=== PATIENT | female | born 1955 | race Caucasian/White ===

== ENCOUNTER 2022-09-29 18:31 | Emergency (ER) | payer MEDICARE ==
[~2022-09-29] VITALS: Ht 170.2 cm; Wt 181.4 kg
[2022-09-29 19:00] VITALS: BP_SYST 135
--- NOTE | 2022-09-29 19:15 | NUR ---
ER examining patient in the [facility].
[2022-09-29] MEDS ORDERED: KETOROLAC TROMETHAMINE 30 MG VIAL IVP ONE (19:45)
[2022-09-29] MEDS ORDERED: MORPHINE 4 MG INJ. 4 MG/ML VIAL IVP ONE (19:45)
--- NOTE | 2022-09-29 20:25 | NUR ---
Patient to ER bed 6 to gown for evaluation. Side rails up. Report given to Jethro IBANEZ(reg).
--- NOTE | 2022-09-29 20:30 | NUR ---
Patient arrived to ED for c/o right side leg pain. Patient has chronic leg pain that lasted about a year. Patient has unbearable leg pain. Patient denies falling or any injuries. Patient has many co-morbities that are listed. Patient has diabetes, HTN, CHF, kidney disease and takes insulin. Patient has regular BM and urination practices. Patient eats and drinks okay.
[2022-09-29 22:40] LABS: HEMATOCRIT 41.2 % (36-48); HEMOGLOBIN 13.3 g/dL (12.0-16.0); MEAN CORPUSCULAR HEMOGLOBIN 34 pg (27-31); MEAN CORPUSCULAR HGB CONC 32 % (32-36); MEAN CORPUSCULAR VOLUME 105 fL (79.0-98.0); PLATELET COUNT (AUTO) 175 K/uL (130-430); RED BLOOD CELL COUNT(AUTO) 3.92 MIL/uL (4.2-6.2); RED CELL DISTRIBUTION WIDTH 15.3 % (9.0-15.0); WHITE BLOOD COUNT (AUTO) 8.6 K/uL (4.8-10.8)
[2022-09-29 22:53] LABS: ANION GAP 6 (5-15); CALCIUM 9.2 mg/dL (8.4-11.0); CHLORIDE 115 mmol/L (98-107); CREATININE 1.72 mg/dL (0.55-1.30); GLUCOSE 168 mg/dL (70-99); UREA NITROGEN, BLOOD 50 mg/dL (8-21)
[2022-09-29 22:58] LABS: ALANINE AMINOTRANSFERASE 17 U/L (12-78); ALBUMIN 3.1 g/dL (3.4-4.8); ASPARTATE AMINOTRANSFERASE 21 U/L (10-37); TOTAL BILIRUBIN 0.3 mg/dL (0.0-1.0)
[2022-09-29 23:02] LABS: GFR AFRICAN AMERICAN 38 mL/min (>90)
[2022-09-29 23:55] LABS: ERYTHROCYTE SEDIMENTATION RATE 34 MM/HR (0-20)
--- NOTE | 2022-09-29 23:59 | NUR ---
straight in and out cath collected with SHAMAR Del Cid. Patient ok with urine collection.
[2022-09-30 00:13] LABS: BILIRUBIN,URINE NEGATIVE (NEGATIVE); BLOOD, URINE NEGATIVE (NEGATIVE); CLARITY/URINE CLEAR (CLEAR); COLOR,URINE YELLOW (YELLOW); GLUCOSE,URINE NEGATIVE (NEGATIVE); KETONES,URINE NEGATIVE (NEGATIVE); LEUKOCYTE ESTERASE ,URINE NEGATIVE (NEGATIVE); NITRITE, URINE NEGATIVE (NEGATIVE); PH,URINE 5.5 (5.0-8.0); PROTEIN URINE 2+ (NEGATIVE); UROBILINOGEN,URINE 0.2 (0.2-1.0)
[2022-09-30 00:24] LABS: RBC,URINE NONE SEEN /HPF (0-3); WBC,URINE NONE SEEN /HPF (0-3)
[2022-09-30 00:25] LABS: BACTERIA,URINE None Seen /HPF (None Seen)
[2022-09-30 00:26] LABS: URINE SULFO SALICYLIC ACID NEGATIVE (NEGATIVE)
[2022-09-30 00:27] LABS: URIC ACID CRYSTALS,URINE 0-10 /HPF (None Seen)
--- NOTE | 2022-09-30 02:20 | NUR ---
patient resting at the moment. vital signs stable.
--- NOTE | 2022-09-30 02:21 | NUR ---
Patient has been accepted to [facility].
[2022-09-30] MEDS ORDERED: MORPHINE 4 MG INJ. 4 MG/ML VIAL IVP ONE (02:30)
[2022-09-30] MEDS ORDERED: ONDANSETRON HCL 4 MG/2 ML VIAL IVP ONE (02:30)
--- NOTE | 2022-09-30 03:24 | NUR ---
Endorsed to [facility] for continuity of care. Patient in stable condition. No distress noted. Awaiting [place] placement at 4 AM.
--- NOTE | 2022-09-30 04:18 | NUR ---
Patient to be transferred to [facility] Is being transferred due to higher level of care. Receiving facility has accepting physician and available space. ER physician has signed transfer form. Patient or responsible republican has agreed to transfer and signed form. Patient belongings inventoried and will be sent with patient. Copy of nursing notes, lab reports, EKG, Physicians Orders and X-rays to be sent with patient. Report called to Aura IBANEZ by Nurse Morelos at receiving facility. Receiving physician is Erika. [facility] ambulance service has been called for transfer.
[2022-09-30 04:20] VITALS: BP_SYST 134
== END 2022-09-30 04:18 | disposition short-term general hospital (02) ==
LOC: SED 18:31
DX: M54.50 Low back pain, unspecified (principal); R20.2 Paresthesia of skin; J44.9 Chronic obstructive pulmonary disease, unspecified; I11.0 Hypertensive heart disease with heart failure; I50.9 Heart failure, unspecified; Z79.899 Other long term (current) drug therapy; Z20.822 Contact with and (suspected) exposure to COVID-19
CPT/HCPCS: 99284; 96374; 72131; 96375 ×2; 87426; 80053; 81000; 85025; 85651; 84484; 36415; 76376; 96376; J1885; J2270 ×2; J2405

== ENCOUNTER 2024-05-03 14:08 | Inpatient (IN) | payer MEDICARE ==
[~2024-05-03] VITALS: Ht 167.6 cm; Wt 176.4 kg
[2024-05-03 14:17] VITALS: BP_SYST 102; PULSE 75; RESP 20; TEMP 97.1; O2SAT 93
[2024-05-03] MEDS ORDERED: AMIODARONE HCL 150 MG in D5W 97 ML IV ONE (14:30)
[2024-05-03 15:25] LABS: BASOPHILS # (AUTO) 0.1 K/uL (0.0-0.2); EOSINOPHILS # (AUTO) 0.2 K/uL (0.0-0.4); EOSINOPHILS % (AUTO) 1.7 % (0.0-4.0); LYMPHOCYTES # (AUTO) 0.9 K/uL (1.0-5.5); LYMPHOCYTES % (AUTO) 8.4 % (20.5-51.5); MEAN CORPUSCULAR HEMOGLOBIN 33 pg (27-31); MEAN CORPUSCULAR HGB CONC 31 % (32-36); MEAN CORPUSCULAR VOLUME 107 fL (79.0-98.0); MONOCYTES # (AUTO) 0.8 K/uL (0.0-1.0); MONOCYTES % (AUTO) 7.2 % (1.7-9.3); NEUTROPHILS # (AUTO) 8.6 K/uL (1.8-7.7); NEUTROPHILS % (AUTO) 81.7 % (40.0-70.0); PLATELET COUNT (AUTO) 140 K/uL (130-430); RED BLOOD CELL COUNT(AUTO) 5.21 MIL/uL (4.2-6.2); RED CELL DISTRIBUTION WIDTH 18.8 % (9.0-15.0); WHITE BLOOD COUNT (AUTO) 10.6 K/uL (4.8-10.8)
[2024-05-03 15:43] LABS: ALANINE AMINOTRANSFERASE 16 U/L (12-78); ANION GAP 2 (5-15); ASPARTATE AMINOTRANSFERASE 24 U/L (10-37); CALCIUM 9.4 mg/dL (8.4-11.0); CARBON DIOXIDE 33 mmol/L (23-29); CHLORIDE 111 mmol/L (98-107); CREATININE 2.56 mg/dL (0.55-1.30); GFR AFRICAN AMERICAN 24 mL/min (>90); GFR NON AFRICAN-AMERICAN 20 mL/min (>90); GLUCOSE 93 mg/dL (74-106); POTASSIUM 5.4 mmol/L (3.5-5.1); PROTHROMBIN TIME 11.9 SECS (9.5-12.5); SODIUM SERUM 146 mmol/L (136-145); TOTAL BILIRUBIN 0.8 mg/dL (0.0-1.0); TOTAL PROTEIN, SERUM 6.4 g/dL (6.4-8.3); UREA NITROGEN, BLOOD 85 mg/dL (8-21)
[2024-05-03 15:45] LABS: BILIRUBIN,DIRECT 0.2 mg/dL (0.0-0.3)
[2024-05-03 15:48] LABS: HEMOGLOBIN 17.2 g/dL (12.0-16.0)
[2024-05-03 15:49] LABS: HEMATOCRIT 55.9 % (36-48)
[2024-05-03 15:52] LABS: INR 1.1 (0.8-1.2)
[2024-05-03 16:50] LABS: ANISOCYTOSIS 1+; POLYCHROMASIA 1+
[2024-05-03 16:51] LABS: OVALOCYTES FEW; STOMATOCYTES MODERATE; TEAR DROP CELLS MODERATE
[2024-05-03] MEDS ORDERED: cefTRIAXone 1 GM VIAL ONE (17:32)
[2024-05-03] MEDS: cefTRIAXone 1 GM in D5W 50 ML IV ONE (17:38)
[2024-05-03] MEDS ORDERED: AZITHROMYCIN 500 MG/VIAL (ZITHROMAX) IV ONE (17:51)
[2024-05-03] MEDS: AZITHROMYCIN 500 MG in NS 250 ML IV ONE (17:54)
[2024-05-03] MEDS: SODIUM POLYSTYRENE SULFONATE 15 GM/60 ML UDBTL PO ONE (18:03)
[2024-05-03] MEDS: ONDANSETRON HCL 4 MG/2 ML VIAL IVP ONE (18:43)
[2024-05-03] MEDS: fentaNYL CITRATE/PF 100 MCG/2 ML AMP IVP ONE (18:49)
[2024-05-03] MEDS ORDERED: NALOXONE HCL 0.4 MG/ML AMP (NARCAN) ONE (19:05)
[2024-05-03] MEDS: NALOXONE HCL 0.4 MG/ML AMP (NARCAN) IVP ONE (19:49)
[2024-05-03] MEDS ORDERED: NOREPINEPHRINE 4 MG/4 ML VIAL IV ONE (20:22)
[2024-05-03] MEDS: NOREPINEPHRINE BITARTRATE 4 MG in NS 246 ML IV ONE (20:35)
[2024-05-03] MEDS: KETAMINE HCL IN 0.9 % NACL 50 MG/5 ML SYRINGE IVP ONE (21:14)
[2024-05-03] MEDS: ROCURONIUM BROMIDE 10 MG/ML (ZEMURON) IV ONE (21:15)
[2024-05-03] MEDS ORDERED: LORazepam 2 MG/ML VIAL IVP PRN (21:30)
[2024-05-03] MEDS ORDERED: HYDROcodone/ACETAMIN 5-325 MG TAB (NORCO/ VICODIN) PO PRN (21:30)
[2024-05-03] MEDS ORDERED: MORPHINE 4 MG INJ. 4 MG/ML VIAL IVP PRN (21:30)
[2024-05-03] MEDS ORDERED: ONDANSETRON HCL 4 MG/2 ML VIAL IVP PRN (21:30)
[2024-05-03] MEDS ORDERED: ACETAMINOPHEN 325 MG TABLET PO PRN (21:30)
[2024-05-03] MEDS ORDERED: D5W 1,000 ML IV PRN (21:45)
[2024-05-03] MEDS ORDERED: GLUCOSE (DEXTROSE) ORAL GEL -Adults PO PRN (21:45)
[2024-05-03] MEDS ORDERED: DEXTROSE 50% JECT 50 ML DISP.SYRIN IVP PRN (21:45)
[2024-05-03] MEDS: PROPOFOL DRIP 100 ML IV ONE (21:46)
[2024-05-03] MEDS: D5/0.45 NS 1,000 ML IV ONE (22:19)
[2024-05-03 23:01] LABS: BLOOD GAS HCO3 24.1 mmol/L (21.0-27.0); BLOOD GAS PH 7.125 (7.350-7.450); BLOOD GAS PO2 82.2 mmHg (75.0-100.0)
[2024-05-03 23:02] LABS: ABG O2 SAT% ESTIMATE 93.6 % (94.0-100.0); ALLEN'S TEST POSITIVE (P); BLOOD GAS BASE EXCESS -5.1 mmol/L (-3.0-3.0)
[2024-05-03 23:35] VITALS: BP_SYST 143; PULSE 76
[2024-05-04] VITALS (28 sets, daily range): BP systolic 98–131; PULSE 58–112; RESP 18; TEMP 97.1–98; O2SAT 95–98
[2024-05-04 00:17] LABS: THYROID STIMULATING HORMONE 6.11 uIu/mL (0.36-3.74)
[2024-05-04] MEDS ORDERED: PROPOFOL DRIP 100 ML IV ONE (02:24)
[2024-05-04 08:03] LABS: BASOPHILS % (AUTO) 0.4 % (0.0-2.0); EOSINOPHILS # (AUTO) 0.1 K/uL (0.0-0.4); EOSINOPHILS % (AUTO) 0.7 % (0.0-4.0); HEMATOCRIT 53.2 % (36-48); HEMOGLOBIN 15.9 g/dL (12.0-16.0); LYMPHOCYTES % (AUTO) 8.5 % (20.5-51.5); MEAN CORPUSCULAR HEMOGLOBIN 32 pg (27-31); MEAN CORPUSCULAR HGB CONC 30 % (32-36); MEAN CORPUSCULAR VOLUME 107 fL (79.0-98.0); MONOCYTES # (AUTO) 0.9 K/uL (0.0-1.0); MONOCYTES % (AUTO) 7.3 % (1.7-9.3); NEUTROPHILS % (AUTO) 83.1 % (40.0-70.0); PLATELET COUNT (AUTO) 130 K/uL (130-430); RED BLOOD CELL COUNT(AUTO) 4.96 MIL/uL (4.2-6.2); RED CELL DISTRIBUTION WIDTH 18.6 % (9.0-15.0); WHITE BLOOD COUNT (AUTO) 12.1 K/uL (4.8-10.8)
[2024-05-04 08:13] LABS: ALBUMIN 2.5 g/dL (3.4-4.8); CALCIUM 9.2 mg/dL (8.4-11.0); CREATININE 2.69 mg/dL (0.55-1.30); TOTAL BILIRUBIN 0.8 mg/dL (0.0-1.0); TOTAL PROTEIN, SERUM 5.6 g/dL (6.4-8.3)
[2024-05-04 08:25] LABS: POTASSIUM 6.2 mmol/L (3.5-5.1)
[2024-05-04] MEDS: SODIUM ZIRCONIUM CYCLOSILICATE 10 GM POWD.PACK PO SCH (09:00)
[2024-05-04] MEDS: PROPOFOL DRIP 100 ML IV ONE (09:21)
[2024-05-04] MEDS: FUROSEMIDE 40 MG/4 ML VIAL IVP SCH (09:27)
[2024-05-04 09:38] LABS: INR 1.2 (0.8-1.2); PROTHROMBIN TIME 12.4 SECS (9.5-12.5)
[2024-05-04 10:16] LABS: BLOOD GAS HCO3 24.9 mmol/L (21.0-27.0); BLOOD GAS PCO2 36.8 mmHg (35.0-45.0); BLOOD GAS PH 7.448 (7.350-7.450); BLOOD GAS PO2 84.2 mmHg (75.0-100.0)
[2024-05-04 10:17] LABS: ABG O2 SAT% ESTIMATE 96.8 % (94.0-100.0); ALLEN'S TEST POSITIVE (P); BLOOD GAS BASE EXCESS 1.2 mmol/L (-3.0-3.0)
[2024-05-04] MEDS: PROPOFOL DRIP 100 ML IV PRN (11:01)
[2024-05-04] MEDS: FENTANYL CITRATE-0.9 % NACL/PF 100 ML IV PRN (12:27)
[2024-05-04 16:17] LABS: CALCIUM 8.9 mg/dL (8.4-11.0); CREATININE 2.47 mg/dL (0.55-1.30); POTASSIUM 5.5 mmol/L (3.5-5.1)
[2024-05-04] MEDS: VANCOMYCIN HCL 1,500 MG in NS 250 ML IV SCH (17:19)
[2024-05-04] MEDS: CALCIUM GLUC 1 GM/100ML-NACL 100 ML IV ONE (17:20)
[2024-05-04] MEDS: SODIUM POLYSTYRENE SULFONATE 15 GM/60 ML UDBTL PO ONE (17:25)
[2024-05-04] MEDS: HEPARIN SODIUM,PORCINE 5,000 UNITS/ML VIAL SUBCUT SCH (20:16)
[2024-05-04] MEDS: PIPERACILLIN/TAZOBACTAM 2.25 GM in NS 50 ML IV SCH (20:18)
[2024-05-04] MEDS ORDERED: AZITHROMYCIN 500 MG in NS 250 ML IV SCH (21:00)
[2024-05-04] MEDS ORDERED: cefTRIAXone 1 GM IVPB PREMIX 50 ML IV SCH (21:00)
[2024-05-05] VITALS (35 sets, daily range): BP systolic 107–161; PULSE 57–66; RESP 18–20; TEMP 97.4–98.8; O2SAT 94–96
[2024-05-05] MEDS: PANTOPRAZOLE SODIUM 40 MG/VIAL (PROTONIX) IVP SCH (08:52)
[2024-05-05 08:57] LABS: BASOPHILS # (AUTO) 0.1 K/uL (0.0-0.2); BASOPHILS % (AUTO) 0.8 % (0.0-2.0); EOSINOPHILS # (AUTO) 0.2 K/uL (0.0-0.4); EOSINOPHILS % (AUTO) 3.2 % (0.0-4.0); HEMATOCRIT 49.1 % (36-48); HEMOGLOBIN 15.4 g/dL (12.0-16.0); LYMPHOCYTES # (AUTO) 1.1 K/uL (1.0-5.5); LYMPHOCYTES % (AUTO) 14.4 % (20.5-51.5); MEAN CORPUSCULAR HEMOGLOBIN 32 pg (27-31); MEAN CORPUSCULAR HGB CONC 31 % (32-36); MEAN CORPUSCULAR VOLUME 103 fL (79.0-98.0); MONOCYTES # (AUTO) 0.6 K/uL (0.0-1.0); MONOCYTES % (AUTO) 8.5 % (1.7-9.3); NEUTROPHILS # (AUTO) 5.6 K/uL (1.8-7.7); NEUTROPHILS % (AUTO) 73.1 % (40.0-70.0); PLATELET COUNT (AUTO) 117 K/uL (130-430); RED BLOOD CELL COUNT(AUTO) 4.76 MIL/uL (4.2-6.2); RED CELL DISTRIBUTION WIDTH 18.9 % (9.0-15.0); WHITE BLOOD COUNT (AUTO) 7.6 K/uL (4.8-10.8)
[2024-05-05 09:17] LABS: ALBUMIN 2.2 g/dL (3.4-4.8); CALCIUM 8.7 mg/dL (8.4-11.0); CREATININE 2.54 mg/dL (0.55-1.30); POTASSIUM 4.9 mmol/L (3.5-5.1); TOTAL BILIRUBIN 1.2 mg/dL (0.0-1.0); TOTAL PROTEIN, SERUM 5.4 g/dL (6.4-8.3)
[2024-05-05] MEDS: FUROSEMIDE 100 MG in D5W 90 ML IV SCH (13:41)
[2024-05-05] MEDS: ALBUMIN HUMAN 25% 50 ML IV SCH (23:59)
[2024-05-05] MEDS: ALBUMIN HUMAN 25% 50 ML IV ONE (23:59)
[2024-05-06] VITALS (34 sets, daily range): BP systolic 116–174; PULSE 59–94; RESP 16–28; TEMP 97.7–98.7; O2SAT 94–99
[2024-05-06 04:44] LABS: BASOPHILS % (AUTO) 0.6 % (0.0-2.0); EOSINOPHILS # (AUTO) 0.3 K/uL (0.0-0.4); HEMATOCRIT 49.9 % (36-48); HEMOGLOBIN 15.7 g/dL (12.0-16.0); LYMPHOCYTES # (AUTO) 1.1 K/uL (1.0-5.5); LYMPHOCYTES % (AUTO) 14.6 % (20.5-51.5); MEAN CORPUSCULAR HEMOGLOBIN 32 pg (27-31); MEAN CORPUSCULAR HGB CONC 32 % (32-36); MEAN CORPUSCULAR VOLUME 103 fL (79.0-98.0); MONOCYTES # (AUTO) 0.6 K/uL (0.0-1.0); NEUTROPHILS # (AUTO) 5.4 K/uL (1.8-7.7); NEUTROPHILS % (AUTO) 72.8 % (40.0-70.0); PLATELET COUNT (AUTO) 119 K/uL (130-430); RED BLOOD CELL COUNT(AUTO) 4.85 MIL/uL (4.2-6.2); RED CELL DISTRIBUTION WIDTH 18.3 % (9.0-15.0); WHITE BLOOD COUNT (AUTO) 7.5 K/uL (4.8-10.8)
[2024-05-06 05:36] LABS: CALCIUM 8.8 mg/dL (8.4-11.0); CREATININE 2.56 mg/dL (0.55-1.30); POTASSIUM 4.8 mmol/L (3.5-5.1)
[2024-05-06] MEDS: LEVOTHYROXINE SODIUM 0.088 MG TABLET NG SCH (06:44)
[2024-05-06 09:03] LABS: ABG O2 SAT% ESTIMATE 97.6 % (94.0-100.0); BLOOD GAS BASE EXCESS 1.6 mmol/L (-3.0-3.0); BLOOD GAS HCO3 24.5 mmol/L (21.0-27.0); BLOOD GAS PCO2 33.9 mmHg (35.0-45.0); BLOOD GAS PH 7.476 (7.350-7.450); BLOOD GAS PO2 93.4 mmHg (75.0-100.0)
[2024-05-06 09:07] LABS: ALLEN'S TEST POSITIVE (P)
[2024-05-06] MEDS: INSULIN LISPRO SLIDING SCALE 100 UNITS/ML, 3 ML VIAL (humaLOG) SUBCUT PRN (17:33)
[2024-05-06] MEDS: ATORVASTATIN 20 MG TABLET NG SCH (21:26)
[2024-05-07] VITALS (34 sets, daily range): BP systolic 107–153; PULSE 67–115; RESP 16–32; TEMP 98–98.6; O2SAT 92–98
[2024-05-07 04:54] LABS: BASOPHILS % (AUTO) 0.6 % (0.0-2.0); EOSINOPHILS # (AUTO) 0.4 K/uL (0.0-0.4); EOSINOPHILS % (AUTO) 5.8 % (0.0-4.0); HEMATOCRIT 47.5 % (36-48); HEMOGLOBIN 14.9 g/dL (12.0-16.0); LYMPHOCYTES # (AUTO) 0.9 K/uL (1.0-5.5); LYMPHOCYTES % (AUTO) 13.5 % (20.5-51.5); MEAN CORPUSCULAR HEMOGLOBIN 32 pg (27-31); MEAN CORPUSCULAR HGB CONC 31 % (32-36); MEAN CORPUSCULAR VOLUME 104 fL (79.0-98.0); MONOCYTES # (AUTO) 0.8 K/uL (0.0-1.0); MONOCYTES % (AUTO) 11.1 % (1.7-9.3); NEUTROPHILS # (AUTO) 4.7 K/uL (1.8-7.7); PLATELET COUNT (AUTO) 111 K/uL (130-430); RED BLOOD CELL COUNT(AUTO) 4.59 MIL/uL (4.2-6.2); WHITE BLOOD COUNT (AUTO) 6.9 K/uL (4.8-10.8)
[2024-05-07 05:56] LABS: CALCIUM 8.6 mg/dL (8.4-11.0); CREATININE 2.48 mg/dL (0.55-1.30); POTASSIUM 4.1 mmol/L (3.5-5.1)
[2024-05-07] MEDS: QUEtiapine FUMARATE 25 MG TABLET PO SCH (09:47)
[2024-05-07 11:31] LABS: BLOOD GAS PH 7.318 (7.350-7.450)
[2024-05-07 11:32] LABS: ABG O2 SAT% ESTIMATE 95.3 % (94.0-100.0); BLOOD GAS HCO3 28.7 mmol/L (21.0-27.0); BLOOD GAS PCO2 57.3 mmHg (35.0-45.0); BLOOD GAS PO2 84.2 mmHg (75.0-100.0)
[2024-05-07 11:33] LABS: ALLEN'S TEST POSITIVE (P)
[2024-05-07] MEDS: POLYETHYLENE GLYCOL 3350, 17 GM/ POWD.PACK PO ONE (11:55)
[2024-05-07 13:07] LABS: QUANTIFERON TB GOLD Negative (Negative)
[2024-05-07 14:36] LABS: HEPATITIS C VIRUS AB Negative <0.8 s/co (0.0-0.7)
[2024-05-07] MEDS ORDERED: DOCUSATE SODIUM 100 MG CAPSULE PO SCH (21:00)
[2024-05-07] MEDS: SENNOSIDES 8.6 MG TABLET NG SCH (21:55)
[2024-05-07] MEDS: CARVEDILOL 3.125 MG TABLET (COREG) NG SCH (21:56)
[2024-05-07] MEDS: INSULIN GLARGINE 100 UNITS/ML, 10 ML VIAL SUBCUT SCH (22:05)
[2024-05-08] VITALS (30 sets, daily range): BP systolic 110–158; PULSE 18–102; RESP 13–24; TEMP 98.1–99.1; O2SAT 93–100
[2024-05-08 05:23] LABS: BASOPHILS % (AUTO) 0.6 % (0.0-2.0); EOSINOPHILS # (AUTO) 0.5 K/uL (0.0-0.4); EOSINOPHILS % (AUTO) 6.4 % (0.0-4.0); HEMATOCRIT 47.3 % (36-48); HEMOGLOBIN 14.7 g/dL (12.0-16.0); LYMPHOCYTES % (AUTO) 13.6 % (20.5-51.5); MEAN CORPUSCULAR HEMOGLOBIN 32 pg (27-31); MEAN CORPUSCULAR HGB CONC 31 % (32-36); MEAN CORPUSCULAR VOLUME 104 fL (79.0-98.0); MONOCYTES # (AUTO) 1.2 K/uL (0.0-1.0); MONOCYTES % (AUTO) 15.9 % (1.7-9.3); NEUTROPHILS # (AUTO) 4.8 K/uL (1.8-7.7); NEUTROPHILS % (AUTO) 63.5 % (40.0-70.0); PLATELET COUNT (AUTO) 116 K/uL (130-430); RED BLOOD CELL COUNT(AUTO) 4.55 MIL/uL (4.2-6.2); RED CELL DISTRIBUTION WIDTH 18.6 % (9.0-15.0); WHITE BLOOD COUNT (AUTO) 7.6 K/uL (4.8-10.8)
[2024-05-08 06:07] LABS: ALBUMIN 2.3 g/dL (3.4-4.8); CALCIUM 8.9 mg/dL (8.4-11.0); CREATININE 2.56 mg/dL (0.55-1.30); POTASSIUM 4.9 mmol/L (3.5-5.1); TOTAL BILIRUBIN 1.3 mg/dL (0.0-1.0)
[2024-05-08] MEDS: POLYETHYLENE GLYCOL 3350, 17 GM/ POWD.PACK NG SCH (08:47)
[2024-05-08] MEDS ORDERED: POLYETHYLENE GLYCOL 3350, 17 GM/ POWD.PACK PO SCH (09:00)
[2024-05-08 09:54] LABS: ABG O2 SAT% ESTIMATE 93.1 % (94.0-100.0); BLOOD GAS HCO3 29.3 mmol/L (21.0-27.0); BLOOD GAS PO2 74.3 mmHg (75.0-100.0)
[2024-05-08 10:07] LABS: ALLEN'S TEST POSITIVE (P); BLOOD GAS PCO2 61.5 mmHg (35.0-45.0); BLOOD GAS PH 7.296 (7.350-7.450)
[2024-05-08] MEDS: INSULIN GLARGINE 100 UNITS/ML, 10 ML VIAL SUBCUT SCH (22:11)
[2024-05-08 23:11] LABS: HEPATITIS B SURFACE AG Negative (Negative)
[2024-05-09] VITALS (35 sets, daily range): BP systolic 115–156; PULSE 22–81; RESP 15–19; TEMP 97.7–98.4; O2SAT 89–98
[2024-05-09 08:15] LABS: BASOPHILS # (AUTO) 0.1 K/uL (0.0-0.2); BASOPHILS % (AUTO) 0.8 % (0.0-2.0); EOSINOPHILS # (AUTO) 0.5 K/uL (0.0-0.4); EOSINOPHILS % (AUTO) 6.4 % (0.0-4.0); HEMATOCRIT 47.2 % (36-48); HEMOGLOBIN 14.6 g/dL (12.0-16.0); LYMPHOCYTES # (AUTO) 0.8 K/uL (1.0-5.5); LYMPHOCYTES % (AUTO) 10.9 % (20.5-51.5); MEAN CORPUSCULAR HEMOGLOBIN 33 pg (27-31); MEAN CORPUSCULAR HGB CONC 31 % (32-36); MEAN CORPUSCULAR VOLUME 105 fL (79.0-98.0); MONOCYTES % (AUTO) 13.6 % (1.7-9.3); NEUTROPHILS # (AUTO) 5.2 K/uL (1.8-7.7); NEUTROPHILS % (AUTO) 68.3 % (40.0-70.0); PLATELET COUNT (AUTO) 110 K/uL (130-430); RED BLOOD CELL COUNT(AUTO) 4.49 MIL/uL (4.2-6.2); RED CELL DISTRIBUTION WIDTH 18.4 % (9.0-15.0); WHITE BLOOD COUNT (AUTO) 7.6 K/uL (4.8-10.8)
[2024-05-09 08:24] LABS: ALBUMIN 2.1 g/dL (3.4-4.8); CALCIUM 9.2 mg/dL (8.4-11.0); CREATININE 2.4 mg/dL (0.55-1.30); POTASSIUM 4.2 mmol/L (3.5-5.1); TOTAL PROTEIN, SERUM 5.9 g/dL (6.4-8.3)
[2024-05-10] VITALS (36 sets, daily range): BP systolic 103–148; PULSE 63–102; RESP 18–26; TEMP 98.4–98.9; O2SAT 92–97
[2024-05-10] MEDS: PROPOFOL DRIP 100 ML IV PRN (00:57)
[2024-05-10 06:12] LABS: BASOPHILS # (AUTO) 0.1 K/uL (0.0-0.2); BASOPHILS % (AUTO) 0.9 % (0.0-2.0); EOSINOPHILS # (AUTO) 0.5 K/uL (0.0-0.4); EOSINOPHILS % (AUTO) 7.7 % (0.0-4.0); HEMATOCRIT 48.8 % (36-48); HEMOGLOBIN 15.1 g/dL (12.0-16.0); LYMPHOCYTES % (AUTO) 14.7 % (20.5-51.5); MEAN CORPUSCULAR HEMOGLOBIN 32 pg (27-31); MEAN CORPUSCULAR HGB CONC 31 % (32-36); MEAN CORPUSCULAR VOLUME 103 fL (79.0-98.0); MONOCYTES # (AUTO) 0.8 K/uL (0.0-1.0); MONOCYTES % (AUTO) 11.7 % (1.7-9.3); NEUTROPHILS # (AUTO) 4.6 K/uL (1.8-7.7); PLATELET COUNT (AUTO) 119 K/uL (130-430); RED BLOOD CELL COUNT(AUTO) 4.74 MIL/uL (4.2-6.2); RED CELL DISTRIBUTION WIDTH 18.5 % (9.0-15.0)
[2024-05-10 06:58] LABS: ALBUMIN 2.2 g/dL (3.4-4.8); CALCIUM 9.6 mg/dL (8.4-11.0); CREATININE 2.39 mg/dL (0.55-1.30); TOTAL BILIRUBIN 1.1 mg/dL (0.0-1.0)
[2024-05-10 07:47] LABS: WHITE BLOOD COUNT (AUTO) 7.1 K/uL (4.8-10.8)
[2024-05-10 09:01] LABS: ABG O2 SAT% ESTIMATE 93.3 % (94.0-100.0); BLOOD GAS BASE EXCESS 3.2 mmol/L (-3.0-3.0); BLOOD GAS HCO3 31.2 mmol/L (21.0-27.0); BLOOD GAS PH 7.327 (7.350-7.450)
[2024-05-10 09:08] LABS: ALLEN'S TEST POSITIVE (P)
[2024-05-10 10:19] LABS: BLOOD GAS PCO2 60.9 mmHg (35.0-45.0)
[2024-05-10] MEDS ORDERED: DIATR MEGLU/DIATRIZ SOD 30 ML SOLUTION PO ONE (22:55)
[2024-05-10] MEDS: INSULIN GLARGINE 100 UNITS/ML, 10 ML VIAL SUBCUT SCH (23:17)
[2024-05-11] VITALS (33 sets, daily range): BP systolic 110–153; PULSE 62–115; RESP 11–30; TEMP 97.8–98.6; O2SAT 90–97
[2024-05-11 06:18] LABS: BASOPHILS # (AUTO) 0.1 K/uL (0.0-0.2); BASOPHILS % (AUTO) 0.9 % (0.0-2.0); EOSINOPHILS # (AUTO) 0.5 K/uL (0.0-0.4); EOSINOPHILS % (AUTO) 6.4 % (0.0-4.0); HEMATOCRIT 45.3 % (36-48); HEMOGLOBIN 14.3 g/dL (12.0-16.0); LYMPHOCYTES # (AUTO) 1.2 K/uL (1.0-5.5); LYMPHOCYTES % (AUTO) 16.6 % (20.5-51.5); MEAN CORPUSCULAR HEMOGLOBIN 33 pg (27-31); MEAN CORPUSCULAR HGB CONC 32 % (32-36); MEAN CORPUSCULAR VOLUME 103 fL (79.0-98.0); MONOCYTES # (AUTO) 0.9 K/uL (0.0-1.0); MONOCYTES % (AUTO) 12.7 % (1.7-9.3); NEUTROPHILS # (AUTO) 4.6 K/uL (1.8-7.7); NEUTROPHILS % (AUTO) 63.4 % (40.0-70.0); PLATELET COUNT (AUTO) 129 K/uL (130-430); RED CELL DISTRIBUTION WIDTH 18.1 % (9.0-15.0); WHITE BLOOD COUNT (AUTO) 7.2 K/uL (4.8-10.8)
[2024-05-11 07:10] LABS: ALBUMIN 2.1 g/dL (3.4-4.8); CALCIUM 9.4 mg/dL (8.4-11.0); CREATININE 2.33 mg/dL (0.55-1.30); TOTAL BILIRUBIN 1.1 mg/dL (0.0-1.0); TOTAL PROTEIN, SERUM 5.7 g/dL (6.4-8.3); VANCOMYCIN,RANDOM 25.6 ug/mL (20.0-30.0)
[2024-05-11] MEDS ORDERED: hydrALAZINE HCL 20 MG/ML VIAL IVP PRN (11:30)
[2024-05-11] MEDS: FUROSEMIDE 40 MG/4 ML VIAL IVP SCH (20:37)
[2024-05-11] MEDS: IPRATROPIUM BROM 0.5 MG/2.5 ML VIAL.NEB (ATROVENT) INH PRN (23:03)
[2024-05-11] MEDS: ALBUTEROL SULFATE 0.083% 2.5 MG/3 ML VIAL.NEB INH PRN (23:03)
[2024-05-12] VITALS: BP_SYST 127; PULSE 111; RESP 26; TEMP 98.6; O2SAT 91
== END 2024-05-12 00:49 | disposition short-term general hospital (02) | DRG 870 ==
LOC: SED 14:08 → SIC 21:26
PROVIDERS: ADMIT Internal Medicine; ATTEND Internal Medicine
PROC: 5A09357 Assistance with Respiratory Ventilation, Less than 24 Consecutive Hours, Continuous Positive Airway Pressure (ICD-10-PCS; principal; 2024-05-03)
PROC: 0BH17EZ Insertion of Endotracheal Airway into Trachea, Via Natural or Artificial Opening (ICD-10-PCS; 2024-05-03)
PROC: 5A1955Z Respiratory Ventilation, Greater than 96 Consecutive Hours (ICD-10-PCS; 2024-05-04)
PROC: 05H733Z Insertion of Infusion Device into Right Axillary Vein, Percutaneous Approach (ICD-10-PCS; 2024-05-04)
DX: A41.9 Sepsis, unspecified organism (principal); G93.41 Metabolic encephalopathy; J96.01 Acute respiratory failure with hypoxia; J18.9 Pneumonia, unspecified organism; I50.33 Acute on chronic diastolic (congestive) heart failure; J96.02 Acute respiratory failure with hypercapnia; N18.4 Chronic kidney disease, stage 4 (severe); I13.0 Hypertensive heart and chronic kidney disease with heart failure and stage 1 through stage 4 chronic kidney disease, or unspecified chronic kidney disease; N17.9 Acute kidney failure, unspecified; Z20.822 Contact with and (suspected) exposure to COVID-19; E87.5 Hyperkalemia; E11.22 Type 2 diabetes mellitus with diabetic chronic kidney disease; E66.01 Morbid (severe) obesity due to excess calories; E87.6 Hypokalemia; D69.6 Thrombocytopenia, unspecified; E11.65 Type 2 diabetes mellitus with hyperglycemia
CPT/HCPCS: 36415; 36600; 71045; 74018; 74240; 76604; 80048; 80053; 80076; 80202; 82803; 82948; 83037; 83605; 83880; 84443; 84484; 85025; 85610; 85730; 86480; 86706; 86803; 87040; 87070; 87205; 87340; 93005; 93306; 94002; 94003; 94640; 94660; 94760; 99291; 99292; J0456; J0696; J1644; J1815; J1940; J2310; J2405; J2470; J2543; J2704; J3010; J3370; J7050; J7060; P9046; Q9964